=== PATIENT | female | born 1990 | race Caucasian/White ===

== ENCOUNTER 2016-11-07 01:54 | Emergency (ER) | payer MEDICAID ==
[~2016-11-07] VITALS: Ht 167.6 cm; Wt 126.9 kg
[2016-11-07 01:56] VITALS: BP 153/101
[2016-11-07] MEDS ORDERED: KETOROLAC 30 MG/1 ML ONE (02:16)
[2016-11-07] MEDS ORDERED: OXYcodone/APAP 5/325MG TABLET ONE (02:16)
[2016-11-07] MEDS ORDERED: KETOROLAC 30 MG/1 ML IM ONE (02:30)
[2016-11-07] MEDS ORDERED: OXYcodone/APAP 5/325MG TABLET PO ONE (02:30)
== END 2016-11-07 02:32 | disposition home or self-care (01) ==
LOC: ED 02:31
DX: K02.9 Dental caries, unspecified (principal)
CPT/HCPCS: 96372; 99283; J1885

== ENCOUNTER 2016-11-28 15:22 | Emergency (ER) | payer MEDICAID ==
[~2016-11-28] VITALS: Ht 167.6 cm; Wt 127.0 kg
[2016-11-28 15:37] VITALS: BP 129/89
[2016-11-28] MEDS ORDERED: DEXAMETHASONE 4 MG TABLET PO ONE (16:00)
[2016-11-28] MEDS ORDERED: DEXAMETHASONE 4 MG TABLET ONE (16:01)
== END 2016-11-28 16:34 | disposition home or self-care (01) ==
LOC: ED 16:00
DX: J45.31 Mild persistent asthma with (acute) exacerbation (principal); F17.210 Nicotine dependence, cigarettes, uncomplicated; J03.90 Acute tonsillitis, unspecified
CPT/HCPCS: 87081; 87880; 99284

== ENCOUNTER 2017-08-18 00:27 | Emergency (ER) | payer SELFPAY ==
[~2017-08-18] VITALS: Ht 170.2 cm; Wt 127.0 kg
[2017-08-18 00:30] VITALS: BP 133/90
[2017-08-18 01:12] LABS: CULTURE INDICATED? YES; HCG UR SG 1.034 (1.003-1.030); MICROSCOPIC INDICATED
== END 2017-08-18 02:05 | disposition home or self-care (01) ==
LOC: ED 02:02
DX: R10.2 Pelvic and perineal pain (principal); R11.0 Nausea
CPT/HCPCS: 81001; 81025; 87086; 99284

== ENCOUNTER 2020-04-29 22:10 | Outpatient (CLI) | payer OTHER ==
[2020-04-30 00:11] LABS: MEAN CORPUSCULAR HEMOGLOBIN 30.6 pg (27.0-34.8); MEAN CORPUSCULAR HGB CONC 33.3 g/dL (32.4-35.8); MEAN PLATELET VOLUME 8.4 fL (7.4-10.4); PLATELET COUNT 239 x10^3/uL (130-400); RED CELL DISTRIBUTION WIDTH 12.5 % (9.6-15.2)
[2020-04-30 00:33] LABS: MICROSCOPIC NOT IND
[2020-04-30 00:46] LABS: AMPHETAMINE SCREEN, URINE Negative (Negative); BARBITURATE SCREEN, URINE Negative (Negative); BENZODIAZEPINE SCREEN, URINE Negative (Negative); CANNABINOID SCREEN, URINE Negative (Negative); COCAINE SCREEN, URINE Negative (Negative); METHADONE SCREEN, URINE Negative (Negative); OPIATE SCREEN, URINE Negative (Negative)
== END 2020-04-30 01:23 | disposition home or self-care (01) ==
LOC: LDOP 22:10
PROVIDERS: ATTEND Obstetrics & Gynecology
DX: O42.912 Preterm premature rupture of membranes, unspecified as to length of time between rupture and onset of labor, second trimester (principal); Z3A.26 26 weeks gestation of pregnancy
CPT/HCPCS: 36415; 76805; 80307; 81003; 84112; 85027; 86592; 86762; 86850; 86900; 87086; 87340; 87806; 99211; G0463; G0475

== ENCOUNTER 2020-07-07 19:43 | Outpatient (CLI) | payer MEDICAID, OTHER ==
[~2020-07-07] VITALS: Ht 165.1 cm; Wt 137.7 kg
[2020-07-07 20:00] VITALS: BP 128/82
[2020-07-07 21:14] LABS: MICROSCOPIC NOT IND
[2020-07-07 21:27] LABS: AMPHETAMINE SCREEN, URINE Negative (Negative); BARBITURATE SCREEN, URINE Negative (Negative); BENZODIAZEPINE SCREEN, URINE Negative (Negative); CANNABINOID SCREEN, URINE Negative (Negative); COCAINE SCREEN, URINE Negative (Negative); METHADONE SCREEN, URINE Negative (Negative); OPIATE SCREEN, URINE Negative (Negative)
== END 2020-07-07 22:15 | disposition home or self-care (01) ==
LOC: LDOP 19:43
PROVIDERS: ATTEND Obstetrics & Gynecology
DX: O62.9 Abnormality of forces of labor, unspecified (principal); Z3A.36 36 weeks gestation of pregnancy
CPT/HCPCS: 59025; 80307; 81003; 87081; 87086; 87147

== ENCOUNTER 2020-07-23 18:35 | Outpatient (CLI) | payer MEDICAID ==
[~2020-07-23] VITALS: Ht 165.1 cm; Wt 129.0 kg
[2020-07-23 19:47] LABS: AMPHETAMINE SCREEN, URINE Negative (Negative); BARBITURATE SCREEN, URINE Negative (Negative); BENZODIAZEPINE SCREEN, URINE Negative (Negative); CANNABINOID SCREEN, URINE Negative (Negative); COCAINE SCREEN, URINE Negative (Negative); METHADONE SCREEN, URINE Negative (Negative); OPIATE SCREEN, URINE Negative (Negative)
[2020-07-23 20:39] LABS: MICROSCOPIC NOT IND
== END 2020-07-23 20:52 | disposition home or self-care (01) ==
LOC: LDOP 18:35
PROVIDERS: ATTEND Obstetrics & Gynecology
DX: O42.92 Full-term premature rupture of membranes, unspecified as to length of time between rupture and onset of labor (principal); Z3A.38 38 weeks gestation of pregnancy
CPT/HCPCS: 59025; 80307; 81003; 84112

== ENCOUNTER 2020-07-26 08:42 | Inpatient (IN) | payer MEDICAID ==
[~2020-07-26] VITALS: Ht 165.1 cm; Wt 159.0 kg
[2020-07-26 09:24] LABS: AMPHETAMINE SCREEN, URINE Negative (Negative); BARBITURATE SCREEN, URINE Negative (Negative); BENZODIAZEPINE SCREEN, URINE Negative (Negative); CANNABINOID SCREEN, URINE Negative (Negative); COCAINE SCREEN, URINE Negative (Negative); METHADONE SCREEN, URINE Negative (Negative); OPIATE SCREEN, URINE Negative (Negative)
[2020-07-26] MEDS ORDERED: ONDANSETRON 2MG/ML, 2ML IVPush PRN ×2 (09:30→17:00)
[2020-07-26] MEDS ORDERED: TERBUTALINE 1 MG/ML, 1ML SQ PRN (09:30)
[2020-07-26] MEDS ORDERED: TERBUTALINE 1 MG/ML, 1ML IVPush PRN (09:30)
[2020-07-26] MEDS ORDERED: FENTANYL PF 100 MCG/2ML IVPush PRN (09:30)
[2020-07-26] MEDS ORDERED: FENTANYL PF 100 MCG/2ML IV PRN ×2 (09:30→17:00)
[2020-07-26] MEDS ORDERED: OXYTOCIN 30U/ 0.9% NaCL 500ML 500 ML IV ONE (09:30)
[2020-07-26] MEDS ORDERED: CALCIUM CARBONATE 500 MG TAB.CHEW PO PRN ×2 (09:30→19:30)
[2020-07-26] MEDS ORDERED: LACTATED RINGERS 1,000 ML IV SCH (09:30)
[2020-07-26 09:41] LABS: BASOPHILS % (AUTO) 0 % (0-1); EOSINOPHILS % (AUTO) 1 % (1-7); LYMPHOCYTES % (AUTO) 9 % (22-44); MEAN CORPUSCULAR HEMOGLOBIN 30.2 pg (27.0-34.8); MEAN CORPUSCULAR HGB CONC 33.5 g/dL (32.4-35.8); MEAN PLATELET VOLUME 8.6 fL (7.4-10.4); MONOCYTES % (AUTO) 6 % (2-9); NEUTROPHILS % (AUTO) 84 % (42-75); PLATELET COUNT 206 x10^3/uL (130-400); RED BLOOD COUNT 4.48 x10^6/uL (3.82-5.3); RED CELL DISTRIBUTION WIDTH 13.5 % (9.6-15.2)
[2020-07-26 09:44] LABS: MD NO
[2020-07-26] MEDS ORDERED: D5%-LACTATED RINGERS 1,000 ML IV SCH (10:00)
[2020-07-26] MEDS ORDERED: PENICILLIN GK 5,000,000 UNITS in DEXTROSE 5% 100 ML IVPB ONE (10:00)
[2020-07-26] MEDS ORDERED: PENICILLIN GK 2,500,000 UNITS in DEXTROSE 5% 100 ML IVPB SCH (14:00)
[2020-07-26] MEDS ORDERED: LACTATED RINGERS 1,000 ML INTUTE SCH (14:30)
[2020-07-26] MEDS ORDERED: LACTATED RINGERS 1,000 ML INTUTE PRN (14:30)
[2020-07-26] MEDS ORDERED: SODIUM CITRATE/CITRIC ACID 15 ML UDC ONE (16:10)
[2020-07-26] MEDS ORDERED: METOCLOPRAMIDE 5 MG/ML, 2ML ONE (16:10)
[2020-07-26] MEDS ORDERED: ONDANSETRON 2MG/ML, 2ML ONE (16:43)
[2020-07-26] MEDS ORDERED: PHENYLEPHRINE 10 MG/ML ONE (16:43)
[2020-07-26] MEDS ORDERED: OXYTOCIN 10 UNITS/ML, 1ML ONE (16:43)
[2020-07-26] MEDS ORDERED: KETOROLAC 30 MG/1 ML ONE (16:43)
[2020-07-26] MEDS ORDERED: EPHEDRINE 50 MG/ML, 1ML ONE (16:43)
[2020-07-26] MEDS ORDERED: CEFAZOLIN 1,000 MG ONE (16:43)
[2020-07-26] MEDS ORDERED: DEXAMETHASONE 4 MG/ML, 1ML ONE (16:43)
[2020-07-26] MEDS ORDERED: FENTANYL PF 100 MCG/2ML ONE (16:43)
[2020-07-26] MEDS ORDERED: PROMETHAZINE 25 MG/ML, 1ML IV PRN (17:00)
[2020-07-26] MEDS ORDERED: hydrALAzine 20 MG/ML, 1ML IV PRN (17:00)
[2020-07-26] MEDS ORDERED: METOPROLOL 1 MG/ML, 5ML IV PRN (17:00)
[2020-07-26] MEDS ORDERED: OXYcodone 5 MG/5 ML ORAL.SOL UDC PO PRN (17:00)
[2020-07-26] MEDS ORDERED: MIDAZOLAM 1 MG/ML, 2ML IV PRN (17:00)
[2020-07-26] MEDS ORDERED: EPHEDRINE 50 MG/ML, 1ML IVPush PRN (17:00)
[2020-07-26] MEDS ORDERED: LABETALOL 5MG/ML, 20ML IV PRN (17:00)
[2020-07-26] MEDS ORDERED: HYDROcodone/APAP 7.5-325MG/15ML UDC PO PRN (17:00)
[2020-07-26] MEDS ORDERED: ALBUTEROL SULFATE 2.5 MG/3 ML NPPB PRN (17:00)
[2020-07-26] MEDS ORDERED: MEPERIDINE/PF 25MG/0.5ML IVPush PRN (17:00)
[2020-07-26] MEDS ORDERED: HYDROmorphone 2 MG/ML, 1ML IVPush PRN (17:00)
[2020-07-26] MEDS ORDERED: NEWBORN KIT ONE (17:02)
[2020-07-26] MEDS ORDERED: OXYTOCIN 30U/ 0.9% NaCL 500ML 500 ML ONE (17:02)
[2020-07-26] MEDS ORDERED: HYDROmorphone 2 MG/ML, 1ML ONE (17:31)
[2020-07-26] MEDS ORDERED: morphine SULFATE 10 MG/ML, 1ML IM PRN (19:30)
[2020-07-26] MEDS ORDERED: MORPHINE SULFATE 4 MG/ML, 1ML IVPush PRN (19:30)
[2020-07-26] MEDS ORDERED: morphine SULFATE 10 MG/ML, 1ML IVPush PRN (19:30)
[2020-07-26] MEDS ORDERED: OXYcodone IR 5MG TABLET PO PRN ×2 (19:30)
[2020-07-26] MEDS ORDERED: MISOPROSTOL 200 MCG TABLET PR PRN (19:30)
[2020-07-26] MEDS: OXYTOCIN 30U/ 0.9% NaCL 500ML 500 ML IV SCH (19:30)
[2020-07-26] MEDS ORDERED: MEPERIDINE/PF 50 MG/ML IVPush PRN (19:30)
[2020-07-26] MEDS ORDERED: ACETAMINOPHEN 325 MG TABLET PO PRN ×2 (19:30)
[2020-07-26] MEDS ORDERED: HYDROcodone/APAP 5/325 TABLET PO PRN ×2 (19:30)
[2020-07-26] MEDS ORDERED: MEPERIDINE/PF 25MG/0.5ML IM PRN (19:30)
[2020-07-26] MEDS ORDERED: ONDANSETRON 2MG/ML, 2ML IV PRN (19:30)
[2020-07-26] MEDS ORDERED: KETOROLAC 30 MG/1 ML IM SCH (19:30)
[2020-07-26] MEDS: LACTATED RINGERS 1,000 ML IV SCH ×2 (19:30)
[2020-07-26] MEDS ORDERED: METOCLOPRAMIDE 5 MG/ML, 2ML IV PRN (19:30)
[2020-07-26] MEDS ORDERED: MEPERIDINE/PF 50 MG/ML IM PRN (19:30)
[2020-07-26 20:00] VITALS: BP 126/69
[2020-07-26] MEDS: KETOROLAC 30 MG/1 ML IM/IV SCH (23:40)
[2020-07-27 00:15] VITALS: BP 140/82
[2020-07-27] MEDS: LACTATED RINGERS 1,000 ML IV SCH ×5 (03:30→19:30)
[2020-07-27] MEDS: OXYTOCIN 30U/ 0.9% NaCL 500ML 500 ML IV SCH ×2 (05:30→12:54)
[2020-07-27 05:45] VITALS: BP 118/82
[2020-07-27] MEDS: KETOROLAC 30 MG/1 ML IM/IV SCH ×3 (06:05→18:51)
[2020-07-27] MEDS: SIMETHICONE 80 MG CHEW TAB PO PRN ×3 (06:06→17:30)
[2020-07-27 06:57] LABS: BASOPHILS % (AUTO) 0 % (0-1); EOSINOPHILS % (AUTO) 0 % (1-7); LYMPHOCYTES % (AUTO) 9 % (22-44); MEAN CORPUSCULAR HGB CONC 33.3 g/dL (32.4-35.8); MEAN PLATELET VOLUME 8.5 fL (7.4-10.4); MONOCYTES % (AUTO) 6 % (2-9); NEUTROPHILS % (AUTO) 85 % (42-75); PLATELET COUNT 192 x10^3/uL (130-400); RED BLOOD COUNT 3.82 x10^6/uL (3.82-5.3); RED CELL DISTRIBUTION WIDTH 13.4 % (9.6-15.2)
[2020-07-27 07:40] LABS: MD SCAN
[2020-07-27 08:05] VITALS: BP 124/82
[2020-07-27] MEDS: DOCUSATE 100 MG CAPSULE PO PRN ×2 (08:37→17:30)
[2020-07-27] MEDS: PRENATAL VIT/IRON/FA 1 EACH TABLET PO SCH (08:37)
[2020-07-27] MEDS: OXYcodone/APAP 5/325MG TABLET PO PRN ×4 (08:38→22:09)
[2020-07-27 15:41] VITALS: BP 140/78
[2020-07-27 22:00] VITALS: BP 129/84
[2020-07-28] MEDS: KETOROLAC 30 MG/1 ML IM/IV SCH ×2 (01:23→06:47)
[2020-07-28] MEDS: LACTATED RINGERS 1,000 ML IV SCH ×2 (01:30→03:30)
[2020-07-28] MEDS: OXYTOCIN 30U/ 0.9% NaCL 500ML 500 ML IV SCH (01:30)
[2020-07-28] MEDS: OXYcodone/APAP 5/325MG TABLET PO PRN ×6 (02:07→23:43)
[2020-07-28 07:40] VITALS: BP 136/87
[2020-07-28] MEDS: PRENATAL VIT/IRON/FA 1 EACH TABLET PO SCH (08:31)
[2020-07-28] MEDS: DOCUSATE 100 MG CAPSULE PO PRN ×2 (08:31→19:11)
[2020-07-28] MEDS: SIMETHICONE 80 MG CHEW TAB PO PRN ×2 (08:31→19:11)
[2020-07-28] MEDS ORDERED: IBUPROFEN 600 MG TABLET ONE (13:41)
[2020-07-28] MEDS: IBUPROFEN 600 MG TABLET PO PRN ×2 (13:47→23:40)
[2020-07-28 19:48] VITALS: BP 133/83
[2020-07-29] MEDS: IBUPROFEN 600 MG TABLET PO PRN ×2 (05:11→13:51)
[2020-07-29] MEDS: OXYcodone/APAP 5/325MG TABLET PO PRN (05:11)
[2020-07-29 07:50] VITALS: BP 140/95
[2020-07-29] MEDS: DOCUSATE 100 MG CAPSULE PO PRN (10:53)
[2020-07-29] MEDS: PRENATAL VIT/IRON/FA 1 EACH TABLET PO SCH (10:53)
[2020-07-29] MEDS ORDERED: OXYC1TAB14 PO (18:41)
[2020-07-29] MEDS ORDERED: PREN-75 PO (18:41)
[2020-07-29] MEDS ORDERED: IBUP-1223 PO (18:41)
[2020-07-29] MEDS ORDERED: DOCU-131 PO (18:41)
[2020-07-29 19:26] VITALS: BP 136/83
[2020-07-29 22:18] VITALS: BP 137/85
[2020-07-30] MEDS: SIMETHICONE 80 MG CHEW TAB PO PRN ×2 (00:54→09:06)
[2020-07-30] MEDS: IBUPROFEN 600 MG TABLET PO PRN ×3 (00:54→16:00)
[2020-07-30 08:00] VITALS: BP 139/87
[2020-07-30] MEDS: DOCUSATE 100 MG CAPSULE PO PRN (08:57)
[2020-07-30] MEDS: PRENATAL VIT/IRON/FA 1 EACH TABLET PO SCH (08:57)
[2020-07-30] MEDS: OXYcodone/APAP 5/325MG TABLET PO PRN ×4 (09:06→18:55)
== END 2020-07-30 19:07 | disposition home or self-care (01) | DRG 788 ==
LOC: LDOP 08:42 → LDIP 09:22 → 2NW 19:45
PROVIDERS: ADMIT Obstetrics & Gynecology; ATTEND Obstetrics & Gynecology
PROC: 10D00Z1 Extraction of Products of Conception, Low, Open Approach (ICD-10-PCS; principal; 2020-07-27)
DX: O69.2XX0 Labor and delivery complicated by other cord entanglement, with compression, not applicable or unspecified (principal); O34.211 Maternal care for low transverse scar from previous cesarean delivery; E66.01 Morbid (severe) obesity due to excess calories; O77.9 Labor and delivery complicated by fetal stress, unspecified; O99.214 Obesity complicating childbirth; Z37.0 Single live birth; Z3A.39 39 weeks gestation of pregnancy
CPT/HCPCS: 36415; J7121; 80307; 84112; 85025; 86592; 86850; 86900; 87635; 88307; 93005; G0378; J0690; J1100; J1170; J1885; J2405; J2540; J3010; J2370; J2590; J7120